=== PATIENT | male | born 1995 | race Two or more races ===

== ENCOUNTER 2017-04-05 23:02 | Emergency (ER) | payer OTHER ==
[~2017-04-05] VITALS: Ht 172.7 cm; Wt 72.6 kg
[2017-04-05 23:07] VITALS: BP 130/60
== END 2017-04-06 00:08 ==
LOC: ER 23:05
DX: S00.01XA Abrasion of scalp, initial encounter (principal); F10.129 Alcohol abuse with intoxication, unspecified; R51 Headache; V47.5XXA Car driver injured in collision with fixed or stationary object in traffic accident, initial encounter; Y93.89 Activity, other specified; Y92.89 Other specified places as the place of occurrence of the external cause; Y99.8 Other external cause status
CPT/HCPCS: 70450; 71010; 72125; 82962; 99284; A4606; A6402; Z7610